=== PATIENT | female | born 1985 | race Caucasian/White ===

== ENCOUNTER → 2022-11-13 08:57 | Outpatient (CLI) | payer BC, SELFPAY ==
--- NOTE | ~2022-11-13 | MMUS_ITS ---
EXAMINATION: MM diagnostic favian BI w brenda, US breast LT complete HISTORY: Medial left breast tenderness. Baseline examination. TECHNIQUE: Bilateral ML, MLO and CC full field and multiple left spot 3-D tomosynthesis images were p erformed and synthetic 2-D images were generated. CAD analysis was submitted and interpreted. High re solution complete left breast ultrasound examination including all 4 quadrants and subareolar area wa s performed. COMPARISON: None BREAST PARENCHYMAL COMPOSITION: The breasts are heterogeneously dense, which may obscure small masses . FINDINGS: MAMMOGRAPHIC FINDINGS: Right breast: No suspicious mass or architectural distortion, malignant calcification, skin thickenin g or retraction. Left breast: Approximately 6 mm opacity is noted at the posterior margin of the central left breast on MLO view, i n the outer mid left breast (MLO Tomosynthesis image ) Additional masses may be obscured by the heterogeneously dense stroma. Complete left breast ultrasoun d examination was performed given the complaint of medial left breast tenderness.. ULTRASOUND: 12:00 2 cm from nipple: 5 x 10 x 10 mm multi septated cyst without internal vascularity or posterior shadowing 12:00 1 cm from nipple: Parallel circumscribed hypoechoic 6 x 3 x 6.5 mm lesion without internal vasc ularity or posterior shadowing, benign in appearance 12:00 1 cm from nipple: 2.3 mm circular sonolucency without internal vascularity or posterior shadowi ng 1:00 6 cm from nipple: 2.8 mm circumscribed sonolucency, likely a small cyst 1:00 5 cm from nipple: Circumscribed 3.4 x 2.8 x 5 mm sonolucency with through transmission, consiste nt with cyst 1:00 5 cm from nipple: Parallel circumscribed oval 3 x 7.3 x 7 mm sonolucency with through transmissi on consistent with cyst 1:00 5 cm from nipple: 6 x 5.7 x 3.4 mm cyst 1:00 4 cm from nipple: Circumscribed oval 4.5 x 7.2 mm multi septated cysts with through transmission , posterior enhancement, no internal vascularity, benign in appearance 2:00 4 cm from nipple: 2 x 3.7 x 3.6 mm cyst 3:00 2 cm from nipple: Parallel circumscribed 2.4 x 4 mm sonolucency with through transmission, consi stent with cyst 3:00 2 cm from nipple: Parallel circumscribed 3.2 x 6.9 x 8.9 mm sonolucency consistent with cyst 4:00 5 cm from nipple: Parallel circumscribed multiply septated cyst measuring 2. 79.5 x 4.7 mm 4:00 3 cm from nipple: Parallel circumscribed 5.9 x 4.3 x 2.3 mm hypoechoic lesion without internal s hadowing, benign in appearance 6:00 1 cm from nipple: Parallel circumscribed sonolucency measuring 2.4 x 5 x 5.1 mm, benign in appea livia 8:00 5 cm from nipple: Parallel circumscribed 2.2 x 4 mm hypoechoic area without internal vascularity or posterior shadowing, benign in appearance 8:00 4 cm from nipple: There is an irregular approximately 5.7 x 8.1 x 9.8 mm complex lesion. The mar gins are not completely circumscribed. Considering the irregular outline and incompletely circumscrib ed margins, ultrasound-guided biopsy is recommended 8:00 1 cm from nipple: 3 x 4.3 x 3.7 mm cyst 9:00 subareolar: 3.4 x 4.6 x 4.7 mm cyst IMPRESSION: 1. Incompletely circumscribed irregular up to 9.8 mm complex lesion of left breast at 8:00 4 cm from nipple 2. Ultrasound-guided biopsy of left breast 8:00 lesion 4 cm from nipple is recommended BI-RADS category 4, suspicious findings. Dr. Robertson telephoned the report and ultrasound-guided biopsy recommendation for left breast 8:00 lesio n 4 cm from nipple on November 13, 2022 at 1047 hours to Ailyn at Dr. Torres's office. Reviewed, dictated and finalized at location A. IMPRESSION: 1. Incompletely circumscribed irregular up to 9.8 mm complex lesion of left elian ast at 8:00 4 cm from nipple 2. Ultrasound-guided biopsy of left elian
== END ==
PROVIDERS: PCP Nurse Practitioner; Visit Provider Nurse Practitioner
DX: N64.4 Mastodynia (principal); R92.8 Other abnormal and inconclusive findings on diagnostic imaging of breast
CPT/HCPCS: 76641; 77062; 77066; G0279

== ENCOUNTER → 2023-05-29 11:43 | Outpatient (CLI) | payer BC, SELFPAY ==
--- NOTE | ~2023-05-29 | US_ITS ---
Pelvic ultrasound. Clinical History: Pelvic pain Technique: Realtime transabdominal and transvaginal scanning of the pelvis was performed. Color flow Doppler and Doppler spectral analysis were performed. Findings: The uterus is retroverted, and measures 7.4 x 4.5 x 5.4 cm. The endometrial stripe has a t hickness of 13 mm. No focal mass is identified. The right ovary measures 3.6 x 2.0 x 1.9 cm. No significant right ovarian or adnexal mass is seen. The left ovary measures 2.0 x 3.0 x 2.2 cm. No significant left ovarian or adnexal mass is seen. There is small amount of free fluid in the cul de sac. Impression: Trace free fluid, otherwise unremarkable exam. Reviewed, dictated and finalized at location . [employer]IST[employer] Impression: Trace free fluid, otherwise unremarkable exam.
== END ==
PROVIDERS: PCP Nurse Practitioner; Visit Provider Nurse Practitioner
DX: R10.2 Pelvic and perineal pain (principal)
CPT/HCPCS: 76830